=== PATIENT | male | born 1990 | race Caucasian/White ===

== ENCOUNTER 2019-12-07 16:14 | Emergency (ER) | payer MEDICAID, SELFPAY ==
[2019-12-07 16:15] VITALS: BP 139/116; PULSE 95; RESP 19; TEMP 36.7; O2SAT 97; BMI 21.3
--- NOTE | 2019-12-07 16:34 | XR_ITS ---
PROCEDURE: XR FINGER RT MIN 2V Referring Doctor: IanmichelemarshaLeopoldo Patient Age:29Y CLINICAL INDICATION: pain/injury Pain injury 2nd finger/index finger 4 days ago COMPARISON: No exams were available for comparison FINDINGS: Right index fingers (2nd finger) 3 view. AP lateral and oblique Osseous structures are intact with no fracture or dislocation at the right index finger. No erosive changes There is diffuse swelling at the index finger. This swelling seems to be actually most evident along the palmar aspect on the lateral view but dorsally there is relative focal swelling overlying the PIP joint on on today's lateral view. No radiopaque foreign bodies are evident. No fracture or dislocation. No lytic or blastic change. There is normal mineralization. The joint spaces are well-preserved. No significant degenerative/arthritic changes. No erosive changes evident. . IMPRESSION: 1. The osseous structures intact at right index finger. No fracture or dislocation 2.. The prominent diffuse soft tissue swelling index finger- no radiopaque foreign bodies evident Dictated by: Iglesia Marie MD 12/07/2019 18:40 Iglesia Marie MD in [place] 12/07/2019 18:40
--- NOTE | 2019-12-07 16:35 | HMH.EDGENADL ---
ED Disposition Clinical Impression: Flexor tenosynovitis of finger Disposition: Xfer Short-Term Hosp Condition on Discharge: Fair Additional Instructions: Go to [facility] emergency department now. Do not eat or drink until seen. Referrals: PCP,No [Primary Care Provider] - Forms: Transfer Record - ED - Critical Care Critical Care Time: No Attestation: On 12/07/19, the high probability of a clinically significant, sudden or life threatening deterioration of the following system(s) required my full and direct attention, intervention and personal management. The time I documented below is in addition to time spent performing reported procedures but includes the following listed in this critical care notation. Medical Decision Making - Luan Inquiry Pt receiving controlled substance: Yes Luan was queried for this patient: No Reason not queried -: Emergent pt cond-no time Risks and benefits of using a controlled substance: were not discussed with pt by me Vital Signs: 12/07/19 16:15 12/07/19 17:08 Temperature 98.0 F Temperature Source Oral Pulse Rate [Left Radial] 95 H 88 Respiratory Rate 19 Blood Pressure [Right Arm] 139/116 H 149/102 H Blood Pressure Mean [Right Arm] 123 117 Blood Pressure Source [Right Arm] Automatic Cuff Automatic Cuff Blood Pressure Position [Right Arm] Sitting Sitting 02 Sat by Pulse Oximetry 97 96 Oxygen Delivery Method Room Air Room Air - Lab Data Lab Results 12/07/19 16:55: WBC 15.8 H, RBC 4.55 L, Hgb 14.8, Hct 44.0, MCV 96.8 H, MCH 32.5 H, MCHC 33.6, RDW 13.0, Plt Count 242, MPV 7.6, Neut % (Auto) 82.7 H, Lymph % (Auto) 9.8 L, [place] % (Auto) 6.1, Eos % (Auto) 1.0, Baso % (Auto) 0.5, Neut # (Auto) 13.1 H, Lymph # (Auto) 1.5, [place] # (Auto) 1.0, Eos # (Auto) 0.2, Baso # (Auto) 0.1, Total Counted 100, Neutrophils % (Manual) 84 H, Lymphocytes % (Manual) 10, Monocytes % (Manual) 6, Platelet Estimate Normal, RBC Morphology Normal, ESR 13 12/07/19 16:55: Sodium 140, Potassium 3.7, Chloride 107, Carbon Dioxide 29, Anion Gap 7.7, BUN 13, Creatinine 0.90, Estimated Creat Clear 139, Estimated GFR 99, Est GFR ( Amer) 120, Glucose 110 H, Calcium 9.8, Total Bilirubin 0.5, AST 56, ALT 61, Alkaline Phosphatase 69, C-Reactive Protein 27.1 H, Total Protein 7.3, Albumin 4.2, Globulin 3.1, Albumin/Globulin Ratio 1.4 12/07/19 16:55: Lactate 1.6 Result diagrams: 12/07/19 16:55 12/07/19 16:55 Orders (Tests/Meds): ED MEDICATIONS Discontinued Medications Generic Name Dose Route Start Last Admin Trade Name Freq PRN Reason Stop Dose Admin Ketorolac Tromethamine 60 mg 12/07/19 16:35 12/07/19 16:39 Toradol 60mg/2ml Vial IM 12/07/19 16:36 60 mg ONCE ONE Administration Morphine Sulfate 4 mg 12/07/19 17:23 12/07/19 17:27 Morphine 4mg/Ml Syringe IV 12/07/19 17:24 Not Given ONCE ONE Ondansetron HCl 4 mg 12/07/19 17:23 12/07/19 17:28 Zofran 4mg/2ml Vial IV 12/07/19 17:24 Not Given ONCE ONE ORDERS Category Date Time Status XR finger RT min 2V Stat Exams 12/07/19 16:34 Taken Blood Culture Stat Micro 12/07/19 16:59 Received - Radiology Data #1 Image(s): Hand Image Reviewed: Yes I reviewed the patient's radiology image Soft tissue swelling of index finger. No fractures or foreign body seen. No abnormal gas collections seen. - Physician Consults Physician Consulted: Srikanth Time: 17:24 Reason -: Other (Hand surgery, [facility]) Comment/Response: Accepts transfer to [facility] emergency department. No antibiotics prior to transfer. Medical Decision Narrative: Patient repetitively falling asleep in the emergency department. 6:00 PM: Patient having trouble finding a ride to [facility]. Refuses ambulance transport. Refuses to stay longer in the emergency department looking for a ride. Says that he is going to sign his transfer forms and then return to his home and get a ride from ther
[2019-12-07 17:08] VITALS: BP 149/102; PULSE 88; O2SAT 96
[2019-12-07 17:08] LABS: Basophils # 0.1 K/mm3 (0-0.2); Basophils % 0.5 % (0.1-2.0); Eosinophils # 0.2 K/mm3 (0.0-0.4); Hemoglobin 14.8 g/dL (14.1-18.0); Lymphocytes # 1.5 K/mm3 (0.7-4.5); Lymphocytes % 9.8 % (10-50); Mean Corpuscular HGB Conc 33.6 g/dL (31.8-35.4); Mean Corpuscular Hemoglobin 32.5 pg (27.0-31.2); Mean Corpuscular Volume 96.8 fl (80-94); Mean Platelet Volume 7.6 fl (7.4-10.4); Monocytes % 6.1 % (1.7-9.3); Neutrophils # 13.1 K/mm3 (1.8-7.8); Neutrophils % 82.7 % (37.0-80.0); Platelet Count 242 K/mm3 (142-424); Red Blood Count 4.55 M/mm3 (4.60-6.20); White Blood Count 15.8 K/mm3 (4.8-10.8)
--- NOTE | 2019-12-07 17:09 | PC.NURSE ---
Pt sleeping at this time.
[2019-12-07 17:11] LABS: MANUAL DIFFERENTIAL MANUAL DIFFERENTIAL (MANUAL DIFF)
--- NOTE | 2019-12-07 17:13 | PC.NURSE ---
calling ukgas at this time
[2019-12-07 17:14] LABS: Alanine Aminotransferase 61 U/L (12-78); Albumin Level 4.2 g/dl (3.5-5.0); Albumin/Globulin Ratio 1.4 (1.1-1.8); Alkaline Phosphatase 69 U/L (38-126); Anion Gap 7.7 mEq/L (5-15); Aspartate Amino Transferase 56 U/L (17-59); Bilirubin,Total 0.5 mg/dl (0.2-1.3); Blood Urea Nitrogen 13 mg/dl (9-20); Calcium 9.8 mg/dl (8.4-10.2); Carbon Dioxide 29 mmol/L (22.0-30.0); Chloride 107 mmol/L (98-107); Creatinine Clearance Estimated 139 mL/min (50-200); Estimated Glomerular Filt Rate 99 ml/min (>60); GFR (African American) 120 ML/MIN (>60); Globulin 3.1 g/dL (1.3-3.2); Glucose 110 mg/dl (74-100); Potassium 3.7 mmoL/L (3.5-5.1); Sodium 140 mmol/L (136-145); Total Protein,Serum 7.3 g/dl (6.3-8.2)
[2019-12-07 17:15] LABS: Lactic Acid 1.6 mmol/L (0.7-2.1)
[2019-12-07 17:19] LABS: C-Reactive Protein 27.1 mg/L (0-4)
--- NOTE | 2019-12-07 17:20 | PC.NURSE ---
Dr Hester speaking with Dr guerra
[2019-12-07 17:30] LABS: Lymphocytes % 10 % (10-50); Monocytes % 6 % (2-9); Neutrophils % 84 % (42-76); Platelet Estimate Normal; RBC Morphology Normal; Total Cells Counted 100
[2019-12-07 17:31] LABS: Erythrocyte Sedimentation Rate 13 mm/hr (0-15)
--- NOTE | 2019-12-07 17:45 | PC.NURSE ---
Pt has been accepted to ER, pt states that he does not want to go to and not have a ride back and he understands that he can lose his finger or even his limb. Educated that offers services to get pt home but he knows this is not a guarantee that this can happen and does not want to go without knowing he can get back home. Pt asking if he can fu as an outpt to . states no pt is go from our ER now to . Offered pt to go by ambulance which he refuses as well. Pt is trying to reach family at this time to get a ride to . Will continue to monitor
--- NOTE | 2019-12-07 17:54 | PC.NURSE ---
Pt instructed once leaving ER he is to go straight to ER for further evaluation and possible surgery. Instructed to not eat or drink before arrival to . IV taken out and pt understands risk including losing his finger if not fu with [facility]. NO outpt treatment for this at time and needs fu isra with [facility]. Pt states he needs to go home to get a ride to but he is going. MD aware
[2019-12-07 18:02] VITALS: BP 143/85; PULSE 60; RESP 19; TEMP 36.7; O2SAT 100
== END 2019-12-07 18:07 | disposition short-term general hospital (02) ==
PROVIDERS: Emergency Provider Emergency Medicine
DX: S63.690A Other sprain of right index finger, initial encounter (principal); X50.3XXA Overexertion from repetitive movements, initial encounter; Y92.019 Unspecified place in single-family (private) house as the place of occurrence of the external cause; F17.210 Nicotine dependence, cigarettes, uncomplicated
CPT/HCPCS: 73140; 80053; 83605; 85007; 85025; 85651; 86140; 87040; 96372; 99284

== ENCOUNTER 2019-12-08 00:55 | Emergency (ER) | payer MEDICAID, SELFPAY ==
[2019-12-08 00:46] VITALS: BP 158/100; PULSE 86; RESP 16; TEMP 37.2; O2SAT 97; BMI 21.3
--- NOTE | 2019-12-08 01:14 | PC.NURSE ---
calling [facility] about patient to see if dr man needs to speak to the hand specialist or if he can be transported by ems since he was accepted earlier.
--- NOTE | 2019-12-08 01:21 | PC.NURSE ---
per ukmds. we just need to call the er and give report to them and make sure he gets sent via ems.
--- NOTE | 2019-12-08 01:23 | HMH.EDSKAF ---
ED Disposition Clinical Impression: Flexor tenosynovitis of finger Disposition: Xfer Short-Term Hosp Condition on Discharge: Serious Referrals: PCP,No [Primary Care Provider] - - Critical Care Critical Care Time: No Attestation: On 12/08/19, the high probability of a clinically significant, sudden or life threatening deterioration of the following system(s) required my full and direct attention, intervention and personal management. The time I documented below is in addition to time spent performing reported procedures but includes the following listed in this critical care notation. Medical Decision Making - Medical Records Medical records reviewed: Yes: I reviewed the patient's medical records. - Luan Inquiry Pt receiving controlled substance: No Vital Signs: 12/08/19 00:46 Temperature 98.9 F Temperature Source Oral Pulse Rate [Left Radial] 86 Respiratory Rate 16 Blood Pressure [Right Arm] 158/100 H Blood Pressure Mean [Right Arm] 119 Blood Pressure Source [Right Arm] Automatic Cuff Blood Pressure Position [Right Arm] Sitting 02 Sat by Pulse Oximetry 97 Oxygen Delivery Method Room Air - Lab Data Lab results reviewed: Yes: I reviewed the patient's lab results. Orders (Tests/Meds): ED MEDICATIONS Discontinued Medications Generic Name Dose Route Start Last Admin Trade Name Freq PRN Reason Stop Dose Admin Morphine Sulfate 4 mg 12/08/19 01:16 12/08/19 01:17 Morphine 4mg/Ml Syringe IV 12/08/19 01:17 4 mg ONCE ONE Administration ORDERS Category Date Time Status Complete Blood Count Auto Diff Stat Lab 12/08/19 01:08 Received Comprehensive Metabolic Panel Stat Lab 12/08/19 01:08 Received - Physician Consults Physician Consulted: [facility] - hand Reason -: Transfer to another facilty Skin/Abscess/FB HPI - General Chief complaint: PAIN Stated complaint: pain in right hand Time Seen by Provider: 12/08/19 00:55 Mode of Arrival: EMS Source of Information: Patient, EMS, Medical Record Limitations: No Limitations Description of Symptoms (Recalled from ER Triage Doc. by RN): pt stated he was seen earlier today in the ER for pain in his right index finger and that he was instructed to go to today for surgery to remove a piece of metal form his right hand. per pt he couldnt get a ride to today and that is hurts in his whole hand. pt is tossing around in the bed at this time. - History of Present Illness HPI narrative: pt seen earlier with infected rt index finger with possible grease gun injury-he was seen in the ed and failed to go to - he reports no changes except more pain since he left - denied using any drugs but ate about 1730 - MD complaint: abscess/boil Onset (ago): day(s) Tetanus up to date: unsure Location: R hand Severity: severe Consistency: constant Associated symptoms: denies other symptoms Treatments prior to arrival: none - Related Data Allergies Allergy/AdvReac Type Severity Reaction Status Date / Time No Known Allergies Allergy Verified 12/07/19 16:34 [facility] History - Hepatitis A Screen Drug use history?: No High risk sexual behaviors?: No History of sexually transmitted infection?: No Currently employed?: No Childcare worker?: No Do you have indoor plumbing?: Yes Do you have electricity?: Yes Attestation statement:: This patient has been screened for Hepatitis A risk factors. I have reviewed the patient's past medical history: Yes Medical History: Denies:: Diabetes Mellitus Type 1, Diabetes Mellitus Type 2 - Social History Smoking Status: Current every day smoker # Packs/Day (cigarettes): 1 Alcohol Intake: never Substance Use Type: marijuana, inhalants, methamphetamine Occupational Status: unemployed ROS Obtained: Yes All systems reviewed & no additional complaints Physical Exam - General General appearance: alert - Head Head exam: normocephalic - Eye Eye exam: Present: PERRL, EOMI - ENT ENT exam: Aguilar
[2019-12-08 01:25] LABS: Basophils # 0.1 K/mm3 (0-0.2); Basophils % 0.5 % (0.1-2.0); Eosinophils # 0.3 K/mm3 (0.0-0.4); Eosinophils % 1.7 % (0.1-12.0); Hematocrit 40.8 % (42.0-52.0); Lymphocytes # 2.2 K/mm3 (0.7-4.5); Mean Corpuscular HGB Conc 34.2 g/dL (31.8-35.4); Mean Corpuscular Hemoglobin 32.9 pg (27.0-31.2); Mean Corpuscular Volume 96.1 fl (80-94); Mean Platelet Volume 7.5 fl (7.4-10.4); Monocytes # 1.3 K/mm3 (0.1-1.0); Monocytes % 8.5 % (1.7-9.3); Neutrophils % 75.3 % (37.0-80.0); Platelet Count 247 K/mm3 (142-424); Red Blood Count 4.25 M/mm3 (4.60-6.20); Red Cell Distribution Width 13.2 % (11.5-17.5); White Blood Count 15.9 K/mm3 (4.8-10.8)
[2019-12-08 01:27] LABS: Alanine Aminotransferase 52 U/L (12-78); Albumin Level 3.9 g/dl (3.5-5.0); Albumin/Globulin Ratio 1.4 (1.1-1.8); Alkaline Phosphatase 61 U/L (38-126); Anion Gap 7.8 mEq/L (5-15); Aspartate Amino Transferase 47 U/L (17-59); Bilirubin,Total 0.4 mg/dl (0.2-1.3); Blood Urea Nitrogen 14 mg/dl (9-20); Calcium 9.3 mg/dl (8.4-10.2); Carbon Dioxide 29 mmol/L (22.0-30.0); Chloride 108 mmol/L (98-107); Creatinine Clearance Estimated 139 mL/min (50-200); Estimated Glomerular Filt Rate 99 ml/min (>60); GFR (African American) 120 ML/MIN (>60); Globulin 2.8 g/dL (1.3-3.2); Glucose 106 mg/dl (74-100); Potassium 3.8 mmoL/L (3.5-5.1); Sodium 141 mmol/L (136-145); Total Protein,Serum 6.7 g/dl (6.3-8.2)
--- NOTE | 2019-12-08 01:27 | PC.NURSE ---
Notified Kiesha of transfer to [facility]
[2019-12-08 01:35] LABS: MANUAL DIFFERENTIAL MANUAL DIFFERENTIAL (MANUAL DIFF)
[2019-12-08 01:36] LABS: Lymphocytes % 9 % (10-50); Monocytes % 3 % (2-9); Neutrophils % 83 % (42-76); Platelet Estimate Normal; RBC Morphology Normal; Total Cells Counted 100
[2019-12-08 01:50] VITALS: BP 148/98; PULSE 63; RESP 16; TEMP 37.2; O2SAT 98
== END 2019-12-08 01:53 | disposition short-term general hospital (02) ==
PROVIDERS: Emergency Provider Emergency Medicine
DX: S63.610D Unspecified sprain of right index finger, subsequent encounter (principal); M65.9 Synovitis and tenosynovitis, unspecified; F17.210 Nicotine dependence, cigarettes, uncomplicated
CPT/HCPCS: 80053; 85007; 85025; 96374; 99283

== ENCOUNTER 2020-01-24 21:26 | Emergency (ER) | payer MEDICAID, SELFPAY ==
[2020-01-24 21:27] VITALS: BP 133/95; PULSE 83; RESP 16; O2SAT 98; BMI 18.9
--- NOTE | 2020-01-24 21:44 | HMH.EDMCLR ---
ED Disposition Clinical Impression: Medical clearance for incarceration Disposition: Home, Self-Care Condition on Discharge: Good Instructions: Lifestyle Changes as Effective as Drugs in Preventing Progression to Diabet Additional Instructions: call pcp for follow up Referrals: PCP,No [Primary Care Provider] - - Critical Care Critical Care Time: No Attestation: On 01/24/20, the high probability of a clinically significant, sudden or life threatening deterioration of the following system(s) required my full and direct attention, intervention and personal management. The time I documented below is in addition to time spent performing reported procedures but includes the following listed in this critical care notation. Medical Decision Making - Medical Records Medical records reviewed: Yes: I reviewed the patient's medical records. - Luan Inquiry Pt receiving controlled substance: No Vital Signs: 01/24/20 21:27 Respiratory Rate 16 02 Sat by Pulse Oximetry 98 Oxygen Delivery Method Room Air Medical Clearance HPI - General Chief complaint: Medical Clearance Stated complaint: Medical clearance Time Seen by Provider: 01/24/20 21:40 Mode of Arrival: Ambulatory Source of Information: Patient Limitations: No Limitations Description of Symptoms (Recalled from ER Triage Doc. by RN): Medical Clearance. Pt has no complaints. - History of Present Illness HPI Narrative: no specific c/o MD complaint: medical clearance requested Place: home Traumatic Symptoms: denies traumatic injury Associated Symptoms: denies other symptoms Treatments Prior to Arrival: none Allergies/Adverse reactions: Allergies Allergy/AdvReac Type Severity Reaction Status Date / Time No Known Allergies Allergy Verified 12/07/19 16:34 [facility] History - Hepatitis A Screen Drug use history?: Yes High risk sexual behaviors?: No History of sexually transmitted infection?: No Currently employed?: No Childcare worker?: No Do you have indoor plumbing?: Yes Do you have electricity?: Yes Attestation statement:: This patient has been screened for Hepatitis A risk factors. I have reviewed the patient's past medical history: Yes Medical History: Denies:: Cancer, Diabetes Mellitus Type 1, Diabetes Mellitus Type 2, Internal Pacemaker, MRSA Other Surgeries: No: Pacemaker Amputation: No - Social History Smoking Status: Current every day smoker # Packs/Day (cigarettes): 1 Alcohol Intake: never Substance Use Type: marijuana, methamphetamine Last Used Substance: hours (ago) Occupational Status: unemployed Housing: house ROS Obtained: Yes All systems reviewed & no additional complaints Physical Exam - General General appearance: alert - Head Head exam: normocephalic - Eye Eye exam: Present: PERRL, EOMI - ENT ENT exam: Present: mucous membranes moist - Neck Neck exam: Present: trachea midline - Respiratory Respiratory exam: Absent: respiratory distress - Cardiovascular Cardiovascular exam: Present: regular rate - Abdominal Exam Abdominal exam: Present: soft - Extremities Exam Extremities exam: Present: full ROM - Neurological Exam Neurological exam: Present: alert, CN II-XII intact - Psychiatric Psychiatric exam: Present: normal affect - Skin Skin exam: Absent: rash
[2020-01-24 21:52] VITALS: BP 133/95; PULSE 83; RESP 16; TEMP 36.8; O2SAT 98
== END 2020-01-24 21:54 | disposition home or self-care (01) ==
PROVIDERS: Emergency Provider Emergency Medicine
DX: F15.10 Other stimulant abuse, uncomplicated (principal); F12.10 Cannabis abuse, uncomplicated; F17.210 Nicotine dependence, cigarettes, uncomplicated
CPT/HCPCS: 99282

== ENCOUNTER 2020-05-24 21:50 | Emergency (ER) | payer MEDICAID, SELFPAY ==
[2020-05-24 21:51] VITALS: BP 143/82; PULSE 75; RESP 16; TEMP 36.5; O2SAT 98; BMI 18.7
--- NOTE | 2020-05-24 22:26 | HMH.EDMCLR ---
ED Disposition Clinical Impression: Medical clearance for incarceration Disposition: Home, Self-Care Condition on Discharge: Good Instructions: DI for Drug or Alcohol Withdrawal Additional Instructions: see pcp for follow up Referrals: PCPEvi [Primary Care Provider] - - Critical Care Critical Care Time: No Attestation: On 05/24/20, the high probability of a clinically significant, sudden or life threatening deterioration of the following system(s) required my full and direct attention, intervention and personal management. The time I documented below is in addition to time spent performing reported procedures but includes the following listed in this critical care notation. Medical Decision Making - Medical Records Medical records reviewed: Yes: I reviewed the patient's medical records. - Luan Inquiry Pt receiving controlled substance: No Vital Signs: 05/24/20 21:51 Temperature 97.7 F Temperature Source Oral Pulse Rate [Right] 75 Respiratory Rate 16 Blood Pressure [Right Arm] 143/82 H Blood Pressure Mean [Right Arm] 102 Blood Pressure Source [Right Arm] Automatic Cuff Blood Pressure Position [Right Arm] Sitting 02 Sat by Pulse Oximetry 98 Oxygen Delivery Method Room Air Medical Clearance HPI - General Chief complaint: Medical Clearance Stated complaint: mEDICAL cLEARANCE Time Seen by Provider: 05/24/20 22:05 Mode of Arrival: Ambulatory Source of Information: Patient, Medical Record Description of Symptoms (Recalled from ER Triage Doc. by RN): PT here for medical clearance. Advises he smoked meth approx 1hr prior to arrest. 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 complaint: medical clearance requested Onset (ago): hour(s) Reason for Medical Clearance: intoxication Place: home Alleged Intoxication: Yes Traumatic Symptoms: denies traumatic injury Associated Symptoms: denies other symptoms Treatments Prior to Arrival: none Allergies/Adverse reactions: Allergies Allergy/AdvReac Type Severity Reaction Status Date / Time No Known Allergies Allergy Verified 12/07/19 16:34 [facility] History - Hepatitis A Screen Drug use history?: No High risk sexual behaviors?: No History of sexually transmitted infection?: No Currently employed?: No Childcare worker?: No Do you have indoor plumbing?: Yes Do you have electricity?: Yes Attestation statement:: This patient has been screened for Hepatitis A risk factors. I have reviewed the patient's past medical history: Yes Medical History: Denies:: Cancer, Diabetes Mellitus Type 1, Diabetes Mellitus Type 2, Internal Pacemaker, MRSA Other Surgeries: No: Pacemaker Amputation: No - Social History Smoking Status: Current every day smoker # Packs/Day (cigarettes): 1 Alcohol Intake: never Substance Use Type: marijuana, methamphetamine Occupational Status: unemployed Housing: house ROS Obtained: Yes All systems reviewed & no additional complaints - Constitutional Constitutional: Denies fever(s) - Eyes Eyes: Denies change in vision - ENT Ears, Nose, Mouth, and Throat: Denies sore throat - Cardiovascular Cardiovascular: Denies chest pain - Respiratory Respiratory: Denies shortness of breath - Gastrointestinal Gastrointestingal: Denies: abdominal pain - Genitourinary Male Genitourinary: Denies hematuria - Musculoskeletal Musculoskeletal: Denies joint pain, Denies joint swelling, Reports other (chronic changes rt hand) - Integumentary/Breasts Skin/Breast: Denies rash - Neurologic Neurologic: Denies seizure-like activity Physical Exam - General General appearance: alert - Head Head exam: normocephalic - Eye Eye exam: Present: PERRL, EOMI. Absent: scleral icterus - ENT ENT exam: Present: mucous membranes moist - Neck Neck exam: Present: trachea
[2020-05-24 22:45] VITALS: BP 147/70; PULSE 65; RESP 16; TEMP 36.7; O2SAT 98
== END 2020-05-24 22:46 | disposition home or self-care (01) ==
PROVIDERS: Emergency Provider Emergency Medicine
DX: Z00.8 Encounter for other general examination (principal); F15.129 Other stimulant abuse with intoxication, unspecified; F17.210 Nicotine dependence, cigarettes, uncomplicated; F12.10 Cannabis abuse, uncomplicated
CPT/HCPCS: 99282

== ENCOUNTER 2020-05-29 05:02 | Emergency (ER) | payer MEDICAID, SELFPAY ==
[2020-05-29 05:03] VITALS: BP 138/91; PULSE 58; RESP 12; TEMP 36.3; O2SAT 98; BMI 25.1
--- NOTE | 2020-05-29 05:24 | HMH.EDMCLR ---
ED Disposition Clinical Impression: Medical clearance for incarceration Disposition: Home, Self-Care Condition on Discharge: Good Instructions: DI for Substance Use Disorder Additional Instructions: see pcp for catrachita dejesus Referrals: PCP,Evi [Primary Care Provider] - - Critical Care Critical Care Time: No Attestation: On 05/29/20, the high probability of a clinically significant, sudden or life threatening deterioration of the following system(s) required my full and direct attention, intervention and personal management. The time I documented below is in addition to time spent performing reported procedures but includes the following listed in this critical care notation. Medical Decision Making - Medical Records Medical records reviewed: Yes: I reviewed the patient's medical records. - Luan Inquiry Pt receiving controlled substance: No Vital Signs: 05/29/20 05:03 Temperature 97.4 F L Temperature Source Oral Pulse Rate [Right] 58 L Respiratory Rate 12 Blood Pressure [Right Arm] 138/91 H Blood Pressure Mean [Right Arm] 106 02 Sat by Pulse Oximetry 98 Oxygen Delivery Method Room Air Medical Clearance HPI - General Chief complaint: Medical Clearance Stated complaint: Medical Clearance Time Seen by Provider: 05/29/20 05:24 Mode of Arrival: Ambulatory Source of Information: Patient, Medical Record Description of Symptoms (Recalled from ER Triage Doc. by RN): pt has no c/o. pt here for medical clerance [facility] - History of Present Illness HPI Narrative: pt with no specific c/o - MD complaint: medical clearance requested Reason for Medical Clearance: intoxication Place: home Alleged Intoxication: Yes Traumatic Symptoms: denies traumatic injury Associated Symptoms: denies other symptoms Treatments Prior to Arrival: none Allergies/Adverse reactions: Allergies Allergy/AdvReac Type Severity Reaction Status Date / Time No Known Allergies Allergy Verified 12/07/19 16:34 [facility] History - Hepatitis A Screen Drug use history?: Yes High risk sexual behaviors?: No History of sexually transmitted infection?: No Currently employed?: No Childcare worker?: No Do you have indoor plumbing?: Yes Do you have electricity?: Yes Attestation statement:: This patient has been screened for Hepatitis A risk factors. I have reviewed the patient's past medical history: Yes Medical History: Denies:: Cancer, Diabetes Mellitus Type 1, Diabetes Mellitus Type 2, Internal Pacemaker, MRSA Other Surgeries: No: Pacemaker Amputation: No - Social History Smoking Status: Current every day smoker # Packs/Day (cigarettes): 1 Alcohol Intake: never Substance Use Type: marijuana, methamphetamine Last Used Substance: unknown Occupational Status: unemployed Housing: house ROS Obtained: Yes All systems reviewed & no additional complaints - Constitutional Constitutional: Denies fever(s) - Eyes Eyes: Denies change in vision - ENT Ears, Nose, Mouth, and Throat: Denies sore throat - Cardiovascular Cardiovascular: Denies chest pain - Respiratory Respiratory: Denies shortness of breath - Gastrointestinal Gastrointestingal: Denies: abdominal pain - Genitourinary Male Genitourinary: Denies flank pain - Musculoskeletal Musculoskeletal: Denies joint pain - Integumentary/Breasts Skin/Breast: Denies rash - Neurologic Neurologic: Denies seizure-like activity Physical Exam - General General appearance: alert, in no apparent distress - Head Head exam: normocephalic - Eye Eye exam: Present: PERRL, EOMI - ENT ENT exam: Present: mucous membranes moist - Neck Neck exam: Present: trachea midline - Respiratory Respiratory exam: Absent: respiratory distress - Cardiovascular Cardiovascular exam: Present: regular rate - Abdominal Exam Abdominal exam: Present: soft - Extremities Exam Extremities exam: Present: full ROM - Neurological Exam Neurological exam: Present: alert, CN II-
[2020-05-29 05:39] VITALS: BP 134/71; PULSE 59; RESP 14; TEMP 36.5; O2SAT 97
== END 2020-05-29 05:41 | disposition home or self-care (01) ==
PROVIDERS: Emergency Provider Emergency Medicine
DX: F15.129 Other stimulant abuse with intoxication, unspecified (principal); F12.10 Cannabis abuse, uncomplicated; F17.210 Nicotine dependence, cigarettes, uncomplicated
CPT/HCPCS: 99282

== ENCOUNTER 2020-07-02 16:37 | Emergency (ER) | payer MEDICAID, SELFPAY ==
[2020-07-02 18:16] VITALS: BP 0/0; PULSE 0; RESP 0; TEMP -17.7; TEMP 0
== END 2020-07-02 18:15 | disposition left against medical advice (07) ==
PROVIDERS: Emergency Provider Nurse Practitioner
DX: Z53.21 Procedure and treatment not carried out due to patient leaving prior to being seen by health care provider (principal)

== ENCOUNTER 2020-07-02 18:27 | Emergency (ER) | payer MEDICAID, SELFPAY ==
[2020-07-02 18:53] VITALS: BP 132/88; PULSE 86; RESP 16; TEMP 37.1; O2SAT 99
--- NOTE | 2020-07-02 18:58 | HMH.EDUTC ---
[facility] [place] Impression: Encounter for laboratory testing for COVID-19 virus Disposition: Home, Self-Care Condition on Discharge: Good Instructions: DI for COVID-19 (Suspected or Confirmed ), Preventing the Spread of Coronavirus Discharge Instructions Additional Instructions: You were tested for today for COVID19 your test result should be back in the next 24-48 hours, you may call to the [facility] to see if your test results are back in the next 48 hours [phone] [facility] hours are 9am-9pm You was given a handout with instructions for Self Quarantine and Self isolation for while you wait on test results and what to do if they are positive If you are positive the Health Dept will be contacting you also Referrals: PCP,No [Primary Care Provider] - As needed Time of Disposition: 18:59 Medical Decision Making - Luan Inquiry Pt receiving controlled substance: No Luan was queried for this patient: No Vital Signs: 07/02/20 18:53 Temperature 98.8 F Temperature Source Oral Pulse Rate [Right] 86 Respiratory Rate 16 Blood Pressure [Right Arm] 132/88 Blood Pressure Mean [Right Arm] 102 Blood Pressure Source [Right Arm] Automatic Cuff 02 Sat by Pulse Oximetry 99 Oxygen Delivery Method Room Air Orders (Tests/Meds): ORDERS Category Date Time Status Covid-19 Nasal PCR ([facility]) Routine Lab 07/02/20 18:46 [place] [facility] [place] - General Stated complaint: COVID TEST Time Seen by Provider: 07/02/20 18:58 Source of Information: Patient Description of Symptoms (Recalled from Triage Doc. by RN): pt requesting covid test so that he can start rehab. No known exposure. HEENT Symptoms (Recalled from RN notes): No Resp Symptoms (Recalled from RN notes): No Skin Symptoms (Recalled from RN notes): No MS Symptoms (Recalled from RN notes): No Functional Status (Recalled from RN notes): na - History of Present Illness Provider Complaint: Patient states that he had to come in and get a COVID test before he can go to rehab tomorrow States that he is not having any symptoms and denies any known exposure - Related Data Home Medications Medication Instructions Recorded Confirmed No Known Home Medications 07/02/20 07/02/20 Allergies Allergy/AdvReac Type Severity Reaction Status Date / Time No Known Allergies Allergy Verified 12/07/19 16:34 - Worker's Comp Is this a Worker's Comp case?: No [facility] History - Hepatitis A Screen Drug use history?: Yes High risk sexual behaviors?: No History of sexually transmitted infection?: No Currently employed?: No Childcare worker?: No Do you have indoor plumbing?: Yes Do you have electricity?: Yes Attestation statement:: This patient has been screened for Hepatitis A risk factors. I have reviewed the patient's past medical history: Yes Medical History: Denies:: Cancer, Diabetes Mellitus Type 1, Diabetes Mellitus Type 2, Internal Pacemaker, MRSA Other Surgeries: No: Pacemaker Amputation: No - Social History Smoking Status: Current every day smoker # Packs/Day (cigarettes): 1 Alcohol Intake: never Substance Use Type: marijuana, methamphetamine Occupational Status: unemployed Housing: house ROS Obtained: Yes All systems reviewed & no additional complaints, Yes Systems reviewed as appropriate & no additional complaints - Constitutional Constitutional: Reports system reviewed and no additional complaints, except as docu, Denies body ache, Denies chills, Denies fever(s) - ENT Ears, Nose, Mouth, and Throat: Reports system reviewed and no additional complaints, except as docu - Cardiovascular Cardiovascular: Reports system reviewed and no additional complaints, except as docu - Respiratory Respiratory: Reports system reviewed and no additional complaints, except as docu - Gastrointestinal Gastrointestingal: Reports: system reviewed and no additional complaints, except as docu Physical Exam - General General appearance: alert, in no apparent distress
[2020-07-02 19:01] VITALS: BP 132/80; PULSE 86; RESP 16; TEMP 37
== END 2020-07-02 19:02 | disposition home or self-care (01) ==
PROVIDERS: Emergency Provider Nurse Practitioner
DX: Z20.822 Contact with and (suspected) exposure to COVID-19 (principal); F17.210 Nicotine dependence, cigarettes, uncomplicated; F12.10 Cannabis abuse, uncomplicated; F15.20 Other stimulant dependence, uncomplicated
CPT/HCPCS: 99202; G0463; U0003